=== PATIENT | female | born 1990 | race Caucasian/White ===

== ENCOUNTER 2017-07-28 00:02 | Inpatient (IN) | payer OTHER ==
[~2017-07-28] VITALS: Ht 165.1 cm; Wt 72.3 kg
[2017-07-28] VITALS (8 sets, daily range): BP systolic 99–126; BP diastolic 58–70
[~2017-07-28 00:02] MED LIST: AUGMENTIN500 MG PO; Augmentin PO; DOCUSATE SODIU100 MG PO; ENDOCET 5-3251 EACH PO; FERROUS SULFAT325 MG PO; IBUPROFEN800 MG PO; MACROBID100 MG PO; Motrin PO; PRENATAL TABLE1 EAC3 PO; PYRIDIUM200 MG PO
[2017-07-28 01:19] LABS: APPEARANCE CLEAR ((CLEAR)); BILIRUBIN NEGATIVE; BLOOD MODERATE; COLOR YELLOW ((YELLOW)); GLUCOSE (STRIP) NEGATIVE; KETONES NEGATIVE; LEUKOCYTES TRACE; NITRITE NEGATIVE; PROTEIN (STRIP) NEGATIVE; SPECIFIC GRAVITY 1.006 (1.000-1.030); UROBILINOGEN 0.2 MG/DL (0.2-1.0)
[2017-07-28 01:23] LABS: BACTERIA RARE /HPF; EPITHELIAL CELLS 1+ /HPF; MUCUS TRACE /LPF; RED BLOOD CELLS 0-5 /HPF (0-5); UCUL ADDED? NO; WHITE BLOOD CELLS 0-5 /HPF (0-5)
[2017-07-28 02:56] LABS: BASOPHIL (%) 0.2 % (0-1); EOSINOPHIL (%) 1.2 % (0-5); EOSINOPHIL COUNT 0.1 K/uL (0-0.3); HEMATOCRIT 31.5 % (36.0-46.0); HEMOGLOBIN 11.3 G/DL (11.9-15.5); IMMATURE GRANULOCYTE (%) 0.3 % (0.0-0.7); LYMPHOCYTE (%) 22.7 % (15-42); MCH 34.2 PG (29.0-34.0); MCHC 35.9 G/DL (30.0-36.0); MCV 95.5 FL (83-99); MONOCYTE (%) 6.9 % (3-12); MONOCYTE COUNT 0.6 K/uL (0-0.8); NEUTROPHIL (%) 68.7 % (45-76); NEUTROPHIL COUNT 6.2 K/uL (1.8-6.4); PLATELET COUNT 162 K/uL (156-360); RBC DIS.WIDTH-CV 12.5 % (11.8-14.6)
[2017-07-28] MEDS ORDERED: ENDOMETRIN100 MG VG (07:15)
[2017-07-28 10:53] LABS: AMPHETAMINE NEGATIVE (500 ng/mL); BARBITURATES NEGATIVE (200 ng/mL); BENZODIAZEPINES NEGATIVE (150 ng/mL); BUPRENORPHINE NEGATIVE (10 ng/mL); COCAINE NEGATIVE (150 ng/mL); METHADONE NEGATIVE (200 ng/mL); METHAMPHETAMINE NEGATIVE (500 ng/mL); OPIATES (MORPHINE) NEGATIVE (100 ng/mL); OXYCODONE NEGATIVE (100 ng/mL); PHENCYCLIDINE NEGATIVE (25 ng/mL); PROPOXYPHENE NEGATIVE (300 ng/mL); THC CANNABINOIDS NEGATIVE (50 ng/mL); TRICYCLIC ANTIDEPRESSANTS NEGATIVE (300 ng/mL)
[2017-07-28 19:28] LABS: BASE EXCESS -2.3 mEq/L (-3 to +3); BICARBONATE 25.4 mEq/L (22-26); CARBOXY HGB 0 % (0-5); METHEMOGLOBIN 2.6 % (0-1.5); PCO2 54 mm Hg (35-45); PO2 < 32 mm Hg (80-100); SITE UMBLICAL ARTERY
[2017-07-28 19:29] LABS: pH 7.28 (7.35-7.45)
[2017-07-28 19:32] LABS: BASE EXCESS -2.3 mEq/L (-3 to +3); BICARBONATE 24.2 mEq/L (22-26); CARBOXY HGB 0.2 % (0-5); PCO2 47 mm Hg (35-45); PO2 < 32 mm Hg (80-100); SITE UMBLICAL VEIN; pH 7.32 (7.35-7.45)
[2017-07-28] MEDS ORDERED: ENDOCET 5-3251 EACH PO (19:40)
[2017-07-28] MEDS ORDERED: IBUPROFEN800 MG PO (19:40)
[2017-07-29] VITALS (9 sets, daily range): BP systolic 92–122; BP diastolic 51–68
[2017-07-29 06:13] LABS: BASOPHIL (%) 0.1 % (0-1); EOSINOPHIL (%) 0.1 % (0-5); HEMATOCRIT 26.4 % (36.0-46.0); IMMATURE GRANULOCYTE (%) 0.4 % (0.0-0.7); LYMPHOCYTE COUNT 1.2 K/uL (1.0-2.8); MCH 33.3 PG (29.0-34.0); MCHC 33.7 G/DL (30.0-36.0); MCV 98.9 FL (83-99); MONOCYTE (%) 5.7 % (3-12); MONOCYTE COUNT 0.7 K/uL (0-0.8); NEUTROPHIL (%) 83.7 % (45-76); NEUTROPHIL COUNT 10.1 K/uL (1.8-6.4); PLATELET COUNT 142 K/uL (156-360); RBC DIS.WIDTH-CV 12.9 % (11.8-14.6); RBC DIS.WIDTH-SD 46.1 % (39-53); RED BLOOD COUNT 2.67 M/uL (3.80-5.20)
[2017-07-29 06:22] LABS: HEMOGLOBIN 8.9 G/DL (11.9-15.5)
[2017-07-30 02:30] VITALS: BP 97/52
[2017-07-30 06:59] LABS: BASOPHIL (%) 0.1 % (0-1); EOSINOPHIL (%) 0.7 % (0-5); EOSINOPHIL COUNT 0.1 K/uL (0-0.3); HEMATOCRIT 27.4 % (36.0-46.0); HEMOGLOBIN 9.1 G/DL (11.9-15.5); IMMATURE GRANULOCYTE (%) 0.4 % (0.0-0.7); LYMPHOCYTE (%) 14.4 % (15-42); LYMPHOCYTE COUNT 1.4 K/uL (1.0-2.8); MCH 33.6 PG (29.0-34.0); MCHC 33.2 G/DL (30.0-36.0); MCV 101.1 FL (83-99); MONOCYTE (%) 7.6 % (3-12); MONOCYTE COUNT 0.7 K/uL (0-0.8); NEUTROPHIL (%) 76.8 % (45-76); NEUTROPHIL COUNT 7.3 K/uL (1.8-6.4); PLATELET COUNT 114 K/uL (156-360); RBC DIS.WIDTH-CV 13.3 % (11.8-14.6); RBC DIS.WIDTH-SD 48.4 % (39-53); RED BLOOD COUNT 2.71 M/uL (3.80-5.20); WHITE BLOOD COUNT 9.5 K/uL (4.1-10.2)
[2017-07-30 10:44] LABS: APPEARANCE CLEAR ((CLEAR)); BILIRUBIN NEGATIVE; BLOOD MODERATE; COLOR STRAW ((YELLOW)); GLUCOSE (STRIP) NEGATIVE; KETONES NEGATIVE; LEUKOCYTES SMALL; NITRITE NEGATIVE; PROTEIN (STRIP) NEGATIVE; SPECIFIC GRAVITY 1.011 (1.000-1.030); UROBILINOGEN 0.2 MG/DL (0.2-1.0)
[2017-07-30 10:55] LABS: BACTERIA NONE SEEN /HPF; EPITHELIAL CELLS RARE /HPF; MUCUS TRACE /LPF; RED BLOOD CELLS 40-50 /HPF (0-5); WHITE BLOOD CELLS 20-30 /HPF (0-5)
[2017-07-30 23:02] VITALS: BP 100/56
[2017-07-31 07:19] VITALS: BP 119/75
[2017-07-31 15:00] VITALS: BP 118/69
[2017-08-01 07:48] VITALS: BP 123/83
[2017-08-01 15:46] VITALS: BP 112/70
== END 2017-08-01 19:15 | disposition home or self-care (01) | DRG 765 ==
LOC: LDRP-OP 00:02 → 2WEST 00:03 → LDRP-OP 10-14 10:19
PROVIDERS: Midwife; Nurse Practitioner; Obstetrics & Gynecology; Obstetrics & Gynecology Obstetrics
PROC: 10D00Z1 Extraction of Products of Conception, Low, Open Approach (ICD-10-PCS; principal; 2017-07-28)
DX: O34.211 Maternal care for low transverse scar from previous cesarean delivery (principal); O60.14X1 Preterm labor third trimester with preterm delivery third trimester, fetus 1; O99.12 Other diseases of the blood and blood-forming organs and certain disorders involving the immune mechanism complicating childbirth; D62 Acute posthemorrhagic anemia; O32.1XX1 Maternal care for breech presentation, fetus 1; O34.03 Maternal care for unspecified congenital malformation of uterus, third trimester; Z37.0 Single live birth; Z3A.33 33 weeks gestation of pregnancy; R87.612 Low grade squamous intraepithelial lesion on cytologic smear of cervix (LGSIL); O42.013 Preterm premature rupture of membranes, onset of labor within 24 hours of rupture, third trimester; O26.893 Other specified pregnancy related conditions, third trimester; M54.9 Dorsalgia, unspecified; O36.5931 Maternal care for other known or suspected poor fetal growth, third trimester, fetus 1; N73.6 Female pelvic peritoneal adhesions (postinfective); O99.02 Anemia complicating childbirth; Q51.2 Other doubling of uterus; Z87.891 Personal history of nicotine dependence; D69.6 Thrombocytopenia, unspecified; Z82.3 Family history of stroke; Z82.5 Family history of asthma and other chronic lower respiratory diseases; Z83.3 Family history of diabetes mellitus
CPT/HCPCS: 36600; 81003; 82731; 82803; 85025; 86850; 86900; 86901; 87081; 87086; 87491; 87591; 88307; J0690; J0702; J1100; J1200; J1885; J2274; J2405; J7120